=== PATIENT | female | born 1990 ===

== ENCOUNTER 2017-08-31 02:51 | Inpatient (IN) | payer OTHER ==
[2017-08-31 03:45] VITALS: BMI 32.4
[2017-08-31] MEDS ORDERED: Lactated Ringer's 1,000 ML IV SCH ×4 (04:00→10:30)
--- NOTE | 2017-08-31 04:14 | CP.PCM.HP ---
History of Present Illness - History of Present Illness History of Present Illness: 26 @ 40 05/27 presented to L&D with complaints of contractions since midnight. Present on Admission - Present on Admission Any Indicators Present on Admission: No History of DVT/PE: No History of Uncontrolled Diabetes: No Urinary Catheter: No Decubitus Ulcer Present: No Decubitus Ulcer Stage: I History Surgical Site Infection Following: None Review of Systems - Constitutional Constitutional: As Per HPI - EENT Eyes: As Per HPI Ears: As Per HPI Nose/Mouth/Throat: As Per HPI - Breasts Breasts: As Per HPI - Cardiovascular Cardiovascular: As Per HPI - Respiratory Respiratory: As Per HPI - Gastrointestinal Gastrointestinal: As Per HPI Meds Allergies/Adverse Reactions: Allergies Allergy/AdvReac Type Severity Reaction Status Date / Time No Known Allergies Allergy Verified 08/31/17 03:46 Physical Exam - Constitutional Appears: Well, No Acute Distress - Head Exam Head Exam: NORMAL INSPECTION - ENT Exam ENT Exam: Mucous Membranes Moist - Respiratory Exam Respiratory Exam: NORMAL BREATHING PATTERN - Cardiovascular Exam Cardiovascular Exam: REGULAR RHYTHM - Exam Exam: NORMAL INSPECTION External exam: NORMAL EXTERNAL EXAM Bimanual exam: NORMAL BIMANUAL EXAM Assessment & Plan - Assessment and Plan (Free Text) Assessment: Early Labor, Plan: 1) Admit to L&D 2) Early Labor contractions q2 3) SVE 50/-2 - Date & Time Date: 08/31/17 Time: 04:15
[2017-08-31 04:35] LABS: BASO # 0.1 K/uL (0.0-0.2); BASO % 0.9 % (0.0-2.0); EOS # 0.4 K/uL (0.0-0.7); EOS % 3.4 % (0.0-4.0); LYMPH # 3.1 K/uL (1.0-4.3); LYMPH % 23.7 % (20.0-40.0); MEAN CELL VOLUME 82.4 fL (81.0-99.0); MEAN CORPUSCULAR HEMOGLOBIN 27.6 pg (27.0-31.0); MEAN CORPUSCULAR HGB CONC 33.6 g/dL (33.0-37.0); MEAN PLATELET VOLUME 9.4 fL (7.2-11.7); MONO # 0.6 K/uL (0.0-0.8); MONO % 4.5 % (0.0-10.0); NEUT # 8.7 K/uL (1.8-7.0); NEUT % 67.5 % (50.0-75.0); NRBC % 0.1 % (0.0-2.0); RBC 3.99 Mil/uL (3.80-5.20); RED CELL DISTRIBUTION WIDTH 14.4 % (11.5-14.5); WHITE BLOOD COUNT 12.9 K/uL (4.8-10.8)
[2017-08-31 04:39] LABS: SPERM URINE RARE /hpf; SQUAMOUS EPITHIAL 2 /hpf (0-5); URINE BACTERIA RARE (<OCC); URINE BILIRUBIN NEGATIVE (NEGATIVE); URINE BLOOD 2+ (NEGATIVE); URINE CLARITY Clear (Clear); URINE COLOR Straw (YELLOW); URINE GLUCOSE (UA) NORMAL (Normal); URINE LEUKOCYTE ESTERASE 2+ Leu/uL (Negative); URINE PROTEIN NEGATIVE (NEGATIVE); URINE UROBILINOGEN NORMAL mg/dL (0.2-1.0)
[2017-08-31 04:48] LABS: ALB/GLOB RATIO 0.9 (1.0-2.1); ALBUMIN 3.1 g/dL (3.5-5.0); ALT/SGPT 8 U/L (9-52); AST/SGOT 26 U/L (14-36); BLOOD UREA NITROGEN 9 mg/dL (7-17); CALCIUM 8.9 mg/dl (8.6-10.4); GFR AFRICAN-AMERICAN > 60; GFR NON-AFRICAN AMERICAN > 60
[2017-08-31] MEDS ORDERED: Fentanyl/Bupivacaine HCl 250 ML EPI ONE (05:46)
--- NOTE | 2017-08-31 07:25 | OBPN ---
Datetime: 08/31/2017 07:21 IP Progress Impression: Normal progression of labor IP Procedures: Artificial ROM IP Progress Plan: Continue present management Membranes, Provider: Ruptured Amniotic Fluid Color, Provider: Clear Contraction Comments Provider: 2-5 min FHR - Baseline A Provider: 125 Gestation - Est Wks by US: 40.2 Presentation-Admit: Vertex IP Progress Note Comment: pt seen an dexmaine ds/p epidurla no copliants VE: /-2 AROM clera EFM: Cat I TOCO: q 2-5 min A/P @ 40.2 wks GA in labor -cont currengt managmenet Vital Signs Provider: Reviewed; Within Normal Limits FHR Category Provider Fetus A: Category I NICHD Variability Prov Fetus A: Moderate 6-25bpm Dilatation, Provider: 6 Effacement, Provider: 90 Station, Provider: -2 Datetime: 08/31/2017 03:58 NICHD Accel Fetus A IP Provider: [id number] NICHD Decel Fetus A IP Provider: None
[2017-08-31] MEDS ORDERED: Oxytocin 30 UNIT 30 UNITS/500 ML BAG IV ONE (10:10)
--- NOTE | 2017-08-31 10:13 | OBPN ---
Datetime: 08/31/2017 10:09 IP Progress Impression: Normal progression of labor IP Progress Plan: Continue present management Membranes, Provider: Ruptured FHR - Baseline A Provider: 140 Gestation - Est Wks by US: 40.2 Presentation-Admit: Vertex IP Progress Note Comment: pt seen and exmaien ds/p epudral VE: 6cm unchanged Plan @ 40+ wks for pitocin augmetnioant pitocn as per protoce con tnurrent mangent NICHD Variability Prov Fetus A: Moderate 6-25bpm Dilatation, Provider: 6 Effacement, Provider: 90 Station, Provider: -2 NICHD Decel Fetus A IP Provider: None
[2017-08-31] MEDS ORDERED: Oxytocin 30 UNIT 30 UNITS/500 ML BAG IV SCH (10:15)
[2017-08-31] MEDS ORDERED: Lidocaine 2% MPF (5 ml) Inj ONE (12:21)
--- NOTE | 2017-08-31 12:23 | OBADHP ---
Datetime: 08/31/2017 03:58 Admit Comment, IP Provider: 26 @ 40 2/7 by EDC 08/29 presents L_D with complaints of contracti ons. Pt is nasir q2. POBHx: 2008 PMHx: none PSHx: none social: denies etoh, drugs ROS: negative. SVE: /-3 A/P: 26 @ 40 2/7 admitted for labor. 1) Admit L_D 2) Vitals stable. 3) SVE: /-2 Pelvic Type - PN: Adequate Extremities - PN: Normal Abdomen - PN: Normal Back - PN: Normal Breast - PN: Normal Lungs - PN: Normal Heart - PN: Normal Thyroid - PN: Normal Neurologic - PN: Normal HEENT - PN: Normal General - PN: Normal FHR - Baseline A Provider: 140s Membranes, Provider: Intact Contraction Comments Provider: q2 minutes Gestation - Est Wks by US: 40 2/7 Vital Signs Provider: Reviewed IP Chief Complaint: Uterine contractions NICHD Variability Prov Fetus A: Moderate 6-25bpm NICHD Accel Fetus A IP Provider: [id number] FHR Category Provider Fetus A: Category I NICHD Decel Fetus A IP Provider: None Dilatation, Provider: 3 Effacement, Provider: 50 Station, Provider: -2 Genitourinary Exam: Normal DTRs - PN: Normal EGA AdmitDate IP: 40.2 IP Adm Impression: Term, intrauterine ; Active labor IP Admit Plan: Admit to unit; Initiate labor protocol Signature: lisa jama
[2017-08-31] MEDS ORDERED: Oxycodone/Acetaminophen 5/325 mg Tab PO PRN ×2 (13:37)
[2017-08-31] MEDS ORDERED: DiphenhydrAMINE 50 mg/ml Inj IVP ONE (14:38)
[2017-08-31] MEDS ORDERED: DiphenhydrAMINE 50 mg/ml Inj ONE (14:57)
[2017-08-31] MEDS: Benzocaine/Menthol 20%-0.5% Topical Spray (60 ml) TOP SCH (16:21)
[2017-09-01 08:06] LABS: HEMOGLOBIN 9.4 g/dL (11.0-16.0); MEAN CELL VOLUME 82.6 fL (81.0-99.0); MEAN CORPUSCULAR HEMOGLOBIN 28.2 pg (27.0-31.0); MEAN CORPUSCULAR HGB CONC 34.1 g/dL (33.0-37.0); MEAN PLATELET VOLUME 8.8 fL (7.2-11.7); RBC 3.35 Mil/uL (3.80-5.20); RED CELL DISTRIBUTION WIDTH 15.3 % (11.5-14.5); WHITE BLOOD COUNT 15.7 K/uL (4.8-10.8)
[2017-09-01 09:06] VITALS: O2SAT 98
--- NOTE | 2017-09-01 15:46 | OBPPN ---
Datetime: 09/01/2017 15:37 PP Pain Prov: Within normal limits PP Nausea Prov: Denies PP Flatus Prov: Yes PP BM Prov: No PP Breasts Prov: Normal PP Heart Prov: Normal PP Lungs Prov: Normal PP Abdomen/Uterus Prov: Normal PP Lochia Prov: Normal PP Vulva/Perineum Prov: Normal PP CVA Tenderness Prov: Normal PP Extremities Prov: Normal PP C/S Incision Prov: Not Applicable PP Progress Prov: Normal PP Comments Phys Exam Prov: Breasts: no cracked nipples Abdomen: Obese. Soft. Non distended. Fundus firm, mobile, non tender at umbilicus. Moderate lochia rubra Extremities: no calf tenderness, cyanosis or edema All other systems reviewed and are negative PP Progress Note Prov: Patient initially seen and to have been evaluated at approximately 0750 hours : actively at that time. Patient re-evaluated at this time: received sitting in chair, room 452. Denies headaches, shortness of breath, palpitations, lightheadedness, or chest pain. Ambul ating in room, only; voiding without difficulty. Denies nausea or vomiting. exclusivel y P.E.: as above; in NAD. Awake, alert, oriented to time, person and place. Pleasant and cooperativ e - PPD#1 H/H 9.4/27.7. Rh(+) Assessment: 26y.o. P2, S/P . Afebrile, vital signs stable. Post delivery anemia noted - on iro n. Patient is asymptomatic and hemodynamically stable. Patient is clinically stable. Plan: 1) Continue post care 2) Encourage ambulation 3) Anticipate discharge home 09/02/17 Vital Signs Provider PP: Reviewed
[2017-09-02 08:49] VITALS: BP 102/65; PULSE 82; RESP 20; TEMP 98.6
[2017-09-02] MEDS: Benzocaine/Menthol 20%-0.5% Topical Spray (60 ml) TOP SCH (10:26)
--- NOTE | 2017-09-02 17:05 | OBPPN ---
Datetime: 09/02/2017 11:38 PP Pain Prov: Within normal limits PP Nausea Prov: Denies PP Flatus Prov: Yes PP BM Prov: Yes PP Heart Prov: Normal PP Lungs Prov: Normal PP Abdomen/Uterus Prov: Normal PP Lochia Prov: Normal PP Extremities Prov: Normal PP Progress Prov: Normal PP Impression Prov: Normal progression PP Plan Prov: Discharge PP Progress Note Prov: Patient was seen and examined at bedside. Patient reports that she is doing w ell with no acute issues. Patient admits to very mild lochia, passing flatus, bowel movement and urin ating without difficulty. Patient denies fever, chills, nausea, vomiting, chest pain, SOB, calf tende rness. Physical Examination: Gen: NAD, AAOx3 Cardio: RRR, + S1, + S2 Pulm: CTA bilaterally Abdomen: Soft, non-tender, fundus is firm and below the umbilicus Ext: No clubbing, no cyanosis and no edema VS: WNL as stated in vital table Labs: 15.4> 11.0/27.7<254 12.9>9.4/32.8<300 O+, Rubella immune Patient is a 26 year old at 40 weeks 2/7 days who is now , s/p , PPD #2 1. Afebrile, stable 2. Pain is well-controlled 3. Continue hydration and ambulation 4. Continue 5. Discharge patient home: -Please discharge patient home -Please take motrin 600mg 1 tab every 6 hours as needed -Please take srinath-sequel 324mg PO BID -Please follow up at [facility] in 6 weeks for post- check and Oral contraceptive d iscussion -Please avoid heavy lifting for 6 weeks -No sexual intercourse and nothing per vaginal for 6- 8 weeks -Please continue ambulation, hydration, breast feeding -Please return to the hospital if symptoms of fever, chills, nausea, vomiting, abdominal pain, hea vy vaginal bleeding and abnormal vaginal discharge Please take care All plans and management discussed with attending, Dr. Almeida Vital Signs Provider PP: Reviewed
--- NOTE | 2017-09-02 17:08 | OBDCSUM ---
Datetime: 09/02/2017 11:36 Discharged to, Provider: Home Follow up at, Provider: [facility] Disch Instr Activity: Normal activity; May be up to bathroom; May be up for meals; May Shower Disch Instr Diet: Regular Discharge Instructions, Provider: Routine instructions given Discharge Diagnosis, Provider: Term Delivered Discharge Time: 09/02/2017 13:00 Follow up in weeks, Provider: 10/14/17 Disch Referrals: None Contraception discussed, Prov: Yes Disch Activity Restrictions: No lifting; No sexual activity; Nothing in vagina - Tullos, tampon s, douche Discharge Comment, Provider: Please discharge patient home Please take motrin 600mg 1 tab every 6 hours as needed Please take srinath-sequel 324mg PO BID Please follow up at [facility] in 6 weeks for post- check and Oral contraceptive di scussion Please avoid heavy lifting for 6 weeks No sexual intercourse and nothing per vaginal for 6- 8 weeks Please continue ambulation, hydration, breast feeding Please return to the hospital if symptoms of fever, chills, nausea, vomiting, abdominal pain, heav y vaginal bleeding and abnormal vaginal discharge Please take care Discharge Diagnosis Prov Other: Diagnosis: at 40 weeks 2/7 days Contraception after Delivery: Undecided
== END 2017-09-02 14:50 | disposition home or self-care (01) | DRG 372 ==
LOC: C.EROB 02:51 → C.4D 03:47 → C.4M 15:15
PROVIDERS: ADMIT Obstetrics & Gynecology; ATTEND Obstetrics & Gynecology
PROC: 10E0XZZ Delivery of Products of Conception, External Approach (ICD-10-PCS; principal; 2017-08-31)
PROC: 10907ZC Drainage of Amniotic Fluid, Therapeutic from Products of Conception, Via Natural or Artificial Opening (ICD-10-PCS; 2017-08-31)
DX: O60.23X0 Term delivery with preterm labor, third trimester, not applicable or unspecified (principal); O99.02 Anemia complicating childbirth; Z37.0 Single live birth; Z3A.40 40 weeks gestation of pregnancy; D64.9 Anemia, unspecified